=== PATIENT | female | born 1945 | race Caucasian/White ===

== ENCOUNTER 2025-07-17 06:52 | Day surgery (SDC) | payer MEDICARE ==
[2025-07-17] VITALS (17 sets, daily range): BP systolic 100–174; BP diastolic 48–73
[~2025-07-17] VITALS: Ht 149.9 cm; Wt 51.9 kg
[~2025-07-17 06:52] MED LIST: CLIM.025TP TD; CLON.5 PO; LEVSOD25 PO; Synthroid25 MCG PO; TRAM50 PO; TRAZ50 PO; VENL25 PO; VENL37.5 PO
--- NOTE | 2025-07-17 07:21 | NUR ---
Patient states colon prep results clear. Patient confirms NPO status and agrees with scheduled surgery. Patient States Post-Procedure ride home has been arranged.
--- NOTE | 2025-07-17 08:11 | NUR ---
07/17/25 0811 Jordi Whitaker CONFIRMED AND REVIEWED H&P, MEDCICATIONS, ALLERGIES, MEDICAL HISTORY, RESPIRATORY HISTORY, VITAL SIGNS, 3-LEAD EKG, CONSENTS, AND PHYSICIAN ORDERS. PATIENT CONFIRMS NPO STATUS AND AGREES WITH SCHEDULED PROCEDURE. MONITOR INTACT WITH CONTINUOUS PULSE OXIMETRY, CAPNOGRAPHY, 3-LEAD EKG, INTERMITTENT BP. SUPPLEMENTAL O2 TO BE TITRATED THROUGHOUT PROCEDURE TO MAINTAIN O2 SATURATION ABOVE 90%. PATIENT DETERMINED TO BE ASA APPROPRIATE FOR PROPOFOL SEDATION PRIOR TO START OF PROCEDURE BY DR. TATUM.
--- NOTE | 2025-07-17 09:06 | NUR ---
Patient up to Ambulate independently. Gait steady. VSS and consistent with pt baseline. Pt has no complaints and verbalizes readiness to go home. Pt maximino PO fluids. Discharge instructions reviewed with patient. Patient verbalizes understanding. Copy given to patient to take home. Patient States Post-Procedure ride home has been arranged. Discharged via wheelchair to private car for ride home. Pt belongings returned to pt.
== END 2025-07-17 08:54 | disposition home or self-care (01) ==
LOC: ORSCMMR 06:52 → ORD 08:00 → ORSCMMR 08:54
PROVIDERS: Surgery
PROC: 0DJD8ZZ Inspection of Lower Intestinal Tract, Via Natural or Artificial Opening Endoscopic (ICD-10-PCS; principal; 2025-07-17 08:00)
DX: Z12.11 Encounter for screening for malignant neoplasm of colon (principal); E03.9 Hypothyroidism, unspecified; Z79.899 Other long term (current) drug therapy
CPT/HCPCS: J2704; J7120